=== PATIENT | female | born 1995 | race Caucasian/White ===

== ENCOUNTER 2017-09-11 00:10 | Emergency (ER) | payer BC ==
[2017-09-11 00:17] VITALS: RESP 16
--- NOTE | 2017-09-11 00:30 | CPEKG ---
Heart Rate: 64 RR Interval: 938 P-R Interval: 136 QRSD Interval: 88 QT Interval: 392 QTC Interval: 405 P [place]: 65 QRS [place]: 69 T Wave [place]: 60 EKG Severity - NORMAL ECG - EKG Impression: SINUS RHYTHM Electronically Signed By: Debra Gutierrez 11-Sep-2017 07:40:01
[2017-09-11 01:27] LABS: % IMMATURE GRANULYOCYTES 0.3 % (0.0-1.1); ABSOLUTE IMMATURE GRANULOCYTES 0.02 10^3/uL (0.00-0.10); ADD DIFF? NO; ADD MORPH? NO; ADD SCAN? NO; ATYPICAL LYMPHOCYTE FLAG 20 (0-99); FRAGMENT RBC FLAG 0 (0-99); HEMATOCRIT 41.6 % (38.0-47.0); HEMOGLOBIN 14.7 g/dL (12.6-16.3); LEFT SHIFT FLG 0 (0-99); LIPEMIA HEMOLYSIS FLAG 90 (0-99); MEAN CELL HEMOGLOBIN 29.9 pg (27.9-34.1); MEAN CELL HEMOGLOBIN CONCENTR. 35.3 g/dL (32.4-36.7); MEAN CELL VOLUME 84.7 fL (81.5-99.8); MEAN PLATELET VOLUME 9.9 fL (8.7-11.7); PLATELET CLUMPS FLAG 0 (0-99); PLATELET COUNT 250 10^3/uL (150-400); RED BLOOD CELL COUNT 4.91 10^6/uL (4.18-5.33); RED CELL DISTRIBUTION WIDTH 13.1 % (11.5-15.2)
[2017-09-11 02:03] LABS: ANION GAP 14 mEq/L (8-16); CALCIUM 9.7 mg/dL (8.5-10.4); CARBON DIOXIDE 23 mEq/l (22-31); CHLORIDE 104 mEq/L (97-110); CREATININE 0.7 mg/dL (0.6-1.0); GLOMERULAR FILTRATION RATE > 60; GLUCOSE 91 mg/dL (70-100); POTASSIUM 3.9 mEq/L (3.5-5.2); SODIUM 141 mEq/L (134-144)
[2017-09-11 02:14] LABS: TROPONIN I < 0.012 ng/mL (0.000-0.034)
--- NOTE | 2017-09-11 02:23 | EDPHY ---
H & P Stated Complaint: flu 2 weeks ago, sharp sub sternal CP today, hx pericarditis HPI/ROS: HPI The patient presents with chest pains for the last 2 weeks though worse today. She describes it as a pressure like sensation in her mid anterior chest that is worse with movement. When she moves in certain directions she feels a sharp pain. This is mild in severity. She had a flu-like illness a few weeks ago, though has made a full recovery she believes. She denies any palpitations, shortness of breath, cough, fever. She has a history in 2013 pericarditis based on EKG with normal echo. She improved with NSAIDs. She is concerned that she may have pericarditis again, though the symptoms feel more mild. REVIEW OF SYSTEMS Constitutional: No fever, no chills. Eyes: No discharge. ENT: No sore throat. Cardiovascular: Positive for chest pain, no palpitations. Respiratory: No cough, no shortness of breath. Gastrointestinal: No abdominal pain, no vomiting. Genitourinary: No hematuria. Musculoskeletal: No back pain. Skin: No rashes. Neurological: No headache. PMHx: Healthy, history of pericarditis Soc Hx: [employer] student FHx: PHYSICAL General Appearance: Alert, no distress Eyes: Pupils equal and round no pallor or injection ENT, Mouth: Mucous membranes moist Respiratory: There are no retractions, lungs are clear to auscultation Cardiovascular: Regular rate and rhythm Gastrointestinal: Abdomen is soft and non-tender, no masses, bowel sounds normal Neurological: A&O, moves all extremities Skin: Warm and dry, no rashes Musculoskeletal: Neck is supple non tender Extremities: symmetrical, full range of motion Psychiatric: Patient is oriented X 3, there is no agitation Source: Patient Exam Limitations: No limitations - Personal History LMP (Females 10-55): 22-28 Days Ago Current Tetanus/Diphtheria Vaccine: Yes Tetanus Vaccine Date: 2011 - Medical/Surgical History Hx Asthma: No Hx Chronic Respiratory Disease: No Hx Diabetes: No Hx Cardiac Disease: No Hx Renal Disease: No Hx Cirrhosis: No Hx Alcoholism: No Hx HIV/AIDS: No Hx Splenectomy or Spleen Trauma: No 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 - Social History Smoking Status: Never smoked Constitutional: Initial Vital Signs Temperature (C) 36.6 C 09/11/17 00:15 Heart Rate 80 09/11/17 00:15 Respiratory Rate 16 09/11/17 00:15 Blood Pressure 121/66 H 09/11/17 00:15 O2 Sat (%) 98 09/11/17 00:15 O2 Delivery Mode Room Air O2 (L/minute) 36.7 Allergies/Adverse Reactions: fentanyl Allergy (Verified 03/29/14 05:08) tree nut [Tree Nut] Allergy (Verified 06/09/14 19:19) Home Medications: Medication Instructions Recorded NK [No Known Home Meds] 03/29/14 Medical Decision Making - Diagnostics EKG Interpretation: EKG: Complete interpretation has been separately recorded in the [employer] archive. Summary impression: Normal sinus rhythm, no ST segment elevation or depression Imaging Results: Chest x-ray two view shows no cardiomegaly, no infiltrate, no pleural effusion, interpreted by me, radiology interpretation is pending. Imaging: I viewed and interpreted images myself Differential Diagnosis: This is a 22-year-old female, history of pericarditis about 4 years ago, who presents with positional sharp chest pain, worse today. On exam, she is well- appearing, vital signs are normal. Different diagnosis includes pericarditis, costochondritis, pneumonia, less likely ACS. In the emergency department, the patient was monitored. Labs and studies were all unremarkable including troponin. I feel pericarditis is unlikely given no EKG changes. She may be suffering from costochondritis and I have explained this to her. I have instructed her to take anti-inflammatory medications until she is feeling better. She is in agreement with this plan. She is to return if she is worse in any way. - Data Points Laboratory Results: Laboratory Results 09/11/17 01:20 09/11/17 01:20 09/11/17 09/11/17 01:20 01:20 WBC 7.95 10^3/uL 10^3/uL (3.80-9.50) RBC 4.91 10^6/uL 10^6/uL (4.18-5.33) Hgb 14.7 g/dL g/dL (12.6-16.3) Hct 41.6 % % (38.0-47.0) MCV 84.7 fL fL (81.5-99.8) MCH 29.9 pg pg (27.9-34.1) MCHC 35.3 g/dL g/dL (32.4-36.7) RDW 13.1 % % (11.5-15.2) Plt Count 250 10^3/uL 10^3/uL (150-400) MPV 9.9 fL fL (8.7-11.7) Neut % (Auto) 60.2 % % (39.3-74.2) Lymph % (Auto) 30.9 % % (15.0-45.0) [place] % (Auto) 6.8 % % (4.5-13.0) Eos % (Auto) 1.3 % % (0.6-7.6) Baso % (Auto) 0.5 % % (0.3-1.7) Nucleat RBC Rel Count 0.0 % % (0.0-0.2) Absolute Neuts (auto) 4.79 10^3/uL 10^3/uL (1.70-6.50) Absolute Lymphs (auto) 2.46 10^3/uL 10^3/uL (1.00-3.00) Absolute Monos (auto) 0.54 10^3/uL 10^3/uL (0.30-0.80) Absolute Eos (auto) 0.10 10^3/uL 10^3/uL (0.03-0.40) Absolute Basos (auto) 0.04 10^3/uL 10^3/uL (0.02-0.10) Absolute Nucleated RBC 0.00 10^3/uL 10^3/uL (0-0.01) Immature Gran % 0.3 % % (0.0-1.1) Immature Gran # 0.02 10^3/uL 10^3/uL (0.00-0.10) Sodium 141 mEq/L mEq/L (134-144) Potassium 3.9 mEq/L mEq/L (3.5-5.2) Chloride 104 mEq/L mEq/L (97-110) Carbon Dioxide 23 mEq/l mEq/l (22-31) Anion Gap 14 mEq/L mEq/L (8-16) BUN 10 mg/dL mg/dL (7-23) Creatinine 0.7 mg/dL mg/dL (0.6-1.0) Estimated GFR > 60 Glucose 91 mg/dL mg/dL (70-100) Calcium 9.7 mg/dL mg/dL (8.5-10.4) Troponin I < 0.012 ng/mL ng/mL (0.000-0.034) Departure - Departure Disposition: Home, Routine, Self-Care Clinical Impression: Chest pain Qualifiers: Chest pain type: unspecified Qualified Code(s): R07.9 - Chest pain, unspecified Condition: Good Instructions: Chest Pain (ED) Additional Instructions: Your lab tests, EKG, chest x-ray today all looked normal. I do not think your suffering from pericarditis. I do recommend that you tried taking ibuprofen 400 mg every 6 hours as needed to see if this helps her pain. You should follow up with the [facility] if the pain continues and you can return to the emergency department if the pain is worse. Referrals: AYDIN ZELAYA [Other] - As per Instructions Frandy White MD [Medical Doctor] - As per Instructions
[2017-09-11 02:33] VITALS: BP 121/70; PULSE 68; TEMP 98.1; O2SAT 97
== END 2017-09-11 02:33 | disposition home or self-care (01) ==
DX: R07.9 Chest pain, unspecified (principal)

== ENCOUNTER 2018-04-01 21:19 | Emergency (ER) | payer BC ==
--- NOTE | 2018-04-01 21:37 | CPEKG ---
Heart Rate: 70 RR Interval: 857 P-R Interval: 140 QRSD Interval: 90 QT Interval: 396 QTC Interval: 428 P [place]: 72 QRS [place]: 73 T Wave [place]: 65 EKG Severity - BORDERLINE ECG - EKG Impression: SINUS RHYTHM EKG Impression: BORDERLINE T ABNORMALITIES, ANT-LAT LEADS Electronically Signed By: Rhoda Wilkinson 01-Apr-2018 23:07:24
--- NOTE | 2018-04-01 21:41 | EDPHY ---
H & P Stated Complaint: SOb, nausea, dizzy, chest pressure Time Seen by Provider: 04/01/18 21:41 HPI/ROS: CHIEF COMPLAINT: Shortness of breath HISTORY OF PRESENT ILLNESS: The patient is a 22 y/o female with a history of pericarditis (two years ago following a viral illness) complaining of intermittent dyspnea since Saturday, 2 days ago. She first noticed shortness of breath while sitting at dinner on Saturday with recurrent 10-minute episodes since then. Episodes are associated with dizziness that feels like "my head gets really light and like I might pass out." She denies syncopal events. She sometimes has associated nausea, diaphoresis, and chest pressure along the right side of her sternum. The chest pressure feels similar to her prior episode of pericarditis, but she did not experience any of the other associated symptoms at that time. She denies fever, cough, cold, abdominal pain, vomiting, diarrhea, leg swelling or pain. No chest trauma. No hormonal control use or history of eating disorders. She denies chance of and reports her last period was 2 weeks ago. She scheduled a PCP visit for to get a referral to cardiology for evaluation of these symptoms. She is otherwise healthy. REVIEW OF SYSTEMS: A ten point review of systems was performed and is negative with the exception of the items mentioned in the HPI. 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 No cigarettes. Occasional alcohol use. [employer] student. PCP: Dr. Olivo General Appearance: Alert. Vital signs reviewed. Eyes: Pupils equal and round, no conjunctival injection, no discharge. Anicteric. ENT, Mouth: Mucous membranes are moist, no oropharyngeal erythema or edema. Neck: No lymphadenopathy, supple. Respiratory: Lungs are clear to auscultation; no wheezes, rales, or rhonchi. Cardiovascular: Regular rate and rhythm; no murmur, rub, or gallop. Gastrointestinal: Abdomen is soft and nontender, no masses or organomegaly. Skin: Warm and dry, no rashes on exposed skin, normal color. Back: Nontender to palpation over the thoracolumbar spine. No CVAT. Extremities: No lower extremity edema, no calf tenderness or swelling. Neurological: Alert and oriented. Moving all four extremities easily and equally. Psychiatric: Normal affect. - Personal History LMP (Females 10-55): 8-14 Days Ago Current Tetanus Diphtheria and Acellular Pertussis (TDAP): Yes Tetanus Vaccine Date: 2011 - Medical/Surgical History Hx Asthma: No Hx Chronic Respiratory Disease: No Hx Diabetes: No Hx Cardiac Disease: No Hx Renal Disease: No Hx Cirrhosis: No Hx Alcoholism: No Hx HIV/AIDS: No Hx Splenectomy or Spleen Trauma: No 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,. acute pericarditis - Social History Smoking Status: Never smoked Constitutional: Initial Vital Signs Temperature (C) 37.1 C 04/01/18 21:27 Heart Rate 71 04/01/18 21:27 Respiratory Rate 20 04/01/18 21:27 Blood Pressure 108/59 L 04/01/18 21:27 O2 Sat (%) 100 04/01/18 21:27 O2 Delivery Mode Room Air Allergies/Adverse Reactions: fentanyl Allergy (Verified 04/01/18 21:27) tree nut [Tree Nut] Allergy (Verified 04/01/18 21:27) Home Medications: Medication Instructions Recorded NK [No Known Home Meds] 03/29/14 Medical Decision Making ED Course/Re-evaluation: This is a healthy 22 y/o female with a history of pericarditis who presents with a 2-day history of intermittent dyspnea with associated lightheadedness, nausea, and right-sided chest pressure. Her exam is unremarkable. Plan for IV, labs, EKG, chest x-ray. The 12 lead EKG was interpreted by myself. Sinus mechanism, unchanged from EKG 09/11/17. See hard copy and/or "trac[employer]" electronic copy for interpretation. Negative well's criteria and negative PERC. I do not think that D-dimer will add her evaluation. PE is highly unlikely. Chest x-ray: No acute pulmonary disease She is not hypoxic, tachypneic, or tachycardic at the time of my evaluation. Her lung sounds are clear. There is no evidence of anemia or volume depletion that might account for presyncopal sensation. I have not discovered anything that would cause her to be short of breath--such as pneumothorax, pneumonia, or heart failure. As above, I do not suspect PE. I do not suspect an acute coronary syndrome. The etiology of her dyspnea remains unclear. I do not recommend further emergency department evaluation. She will be seeing her primary care physician day after tomorrow. Differential Diagnosis: Shortness of breath including but not limited to pulmonary infectious process, COPD, asthma, pulmonary embolus and congestive heart failure. - Data Points Laboratory Results: Laboratory Results 04/01/18 21:54 04/01/18 21:54 Medications Given: Discontinued Medications Ondansetron HCl (Zofran Odt 4 Mg Prepack#2) 1 btl TAKEHOME EDNOW ONE Stop: 04/01/18 23:02 Last Admin: 04/01/18 23:05 Dose: 1 btl Point of Care Test Results: Chemistry 04/01/18 21:53 POC Troponin I 0.00 ng/mL ng/mL (0.00-0.08) Departure - Departure Disposition: Home, Routine, Self-Care Clinical Impression: Pre-syncope, Shortness of breath Condition: Good Instructions: Ondansetron (By mouth), Near Syncope (ED), Shortness of Breath ( ED) Additional Instructions: I have not found a serious or life threatening explanation for your shortness of breath, nausea, and lightheadedness. I agree that you should see your primary care doctor, as planned. I am providing some nausea medication to use if needed. You can let one of the zofran pills dissolve under your tongue every four hours as needed. If something changes--if you faint, if you have constant shortness of breath or developed chest pain, if you have new or concerning symptoms--you should return for another evaluation. Referrals: DR BIBI [Other] - As per Instructions Daniella Tamez MD [Medical Doctor] - As per Instructions Report Scribed for: Rhoda Wilkinson Report Scribed by: Neena Gloria Date of Report: 04/01/18 Time of Report: 22:01 Physician Review and Approval Statement: 04/01/18 21:41 Portions of this note were transcribed by the biomedical repair technician. I, Dr. Rhoda Wilkinson, personally performed the history, physical exam, and medical decision- making; and confirmed the accuracy of the information in the transcribed note.
[2018-04-01 21:59] LABS: PLATELET COUNT 225 10^3/uL (150-400)
[2018-04-01] MEDS ORDERED: ONDANSETRON 4MG PREPACK#2 BTL TAKEHOME ONE (23:01)
[2018-04-01 23:09] VITALS: BP 105/59
== END 2018-04-01 23:08 | disposition home or self-care (01) ==
DX: R06.02 Shortness of breath (principal); R55 Syncope and collapse
CPT/HCPCS: 84484-PO